=== PATIENT | female | born 1995 | race Asian ===

== ENCOUNTER 2017-03-03 08:05 | Emergency (ER) | payer OTHER ==
[2017-03-03] MEDS ORDERED: Albuterol/Ipratropium NEB.SOL* Albuterol 2.5 MG/Ipratropium 0.5 MG 3 ML INH ONE (09:42)
--- NOTE | 2017-03-03 10:17 | RAD ---
INDICATION: Cough for 2 weeks. Shortness of breath beginning this morning. Assess for pneumonia. COMPARISON: No relevant prior exams available on the [facility] for comparison. TECHNIQUE: Dual energy PA and routine lateral views of the chest were obtained. REPORT: Clear lungs and pleural spaces. Negative for pneumothorax. The heart, pulmonary vasculature, and mediastinal contours are unremarkable. Unremarkable osseous structures and soft tissue contours. IMPRESSION: No evidence for pneumonia. No evidence for acute intrathoracic disease.
--- NOTE | 2017-03-03 10:35 | ED ---
Respiratory - HPI Summary HPI Summary: 21 female presents to ED with complaints of SOB and cough that has been ongoing for the past 2 weeks. Patient states she was seen at [facility] Friday given, Desean, nai and mitali. States they have helped her some. She still has been coughing. Admits to a yellow mucus production, worse at night and in the morning. Denies fever/chills, nasal congestion, abdominal pain and chest pain. No prolonged travel or bed rest. Does not use cigarettes. No other complaints at this time. States she felt her muscles were not working this morning and refrained her from breathing but it has since improved and she is feeling better. No other complaints at this time. No PMHx. - History of Current Complaint Chief Complaint: EDShortnessOfBreath Stated Complaint: SHORT OF BREATH Time Seen by Provider: 03/03/17 08:48 Hx Obtained From: Patient Onset/Duration: Sudden Onset, Lasting Weeks, Still Present, Worse Since Current Severity: None Pain Intensity: 0 Character: Cough (Productive) Sputum Amount: Scant Sputum Color: Yellow Aggravating Factor(s): URI, Deep Breaths Alleviating Factor(s): OTC Medications, Spontaneous Resolution Associated Signs and Symptoms: SOB, URI - Allergy/Home Medications Allergies/Adverse Reactions: Allergies Allergy/AdvReac Type Severity Reaction Status Date / Time Penicillins Allergy Unknown Verified 03/03/17 08:15 Reaction Details PMH/Surg Hx/FS Hx/Imm Hx Endocrine/Hematology History: Denies: Hx Diabetes Cardiovascular History: Denies: Hx Hypertension Respiratory History: Denies: Hx Asthma - Surgical History Surgery Procedure, Year, and Place: n/a - Immunization History Immunizations Up to Date: Yes Infectious Disease History: No Infectious Disease History: Denies: Traveled Outside the [place] in Last 30 Days - Family History Known Family History: Positive: None - Social History Alcohol Use: None Substance Use Type: Reports: None Smoking Status (MU): Never Smoked Tobacco Review of Systems Constitutional: Negative Positive: Sore Throat - intermittently, Nasal Discharge - intermittently Cardiovascular: Negative Positive: Shortness Of Breath, Cough Positive: Vomiting - resolved Musculoskeletal: Negative All Other Systems Reviewed And Are Negative: Yes Physical Exam Triage Information Reviewed: Yes Vital Signs On Initial Exam: Initial Vitals Temp Pulse Resp BP Pulse Ox 97.8 F 72 15 106/72 99 03/03/17 08:07 03/03/17 08:07 03/03/17 08:07 03/03/17 08:07 03/03/17 08:07 Vital Signs Reviewed: Yes Appearance: Positive: Well-Appearing, No Pain Distress, Well-Nourished Skin: Positive: Warm, Skin Color Reflects Adequate Perfusion, Dry. Negative: Cold, Cyanosis @, Pale, Erythema @, Cold Injury Head/Face: Positive: Normal Head/Face Inspection Eyes: Positive: EOMI, IRIS, Conjunctiva Clear ENT: Positive: Normal ENT inspection, Hearing grossly normal, Pharynx normal, TMs normal, TM red. Negative: Nasal congestion, Nasal drainage, Trismus, Muffled/hoarse voice Neck: Positive: Supple, Nontender, No Lymphadenopathy Respiratory/Lung Sounds: Positive: Clear to Auscultation, Breath Sounds Present. Negative: Decreased Breath Sounds, Rales, Rhonchi, Wheezes Cardiovascular: Positive: Normal, RRR, Pulses are Symmetrical in both Upper and Lower Extremities. Negative: Murmur, Rub Abdomen Description: Positive: Nontender, Soft Bowel Sounds: Positive: Present Musculoskeletal: Positive: Normal, Strength/ROM Intact Neurological: Positive: Normal, Sensory/Motor Intact, Alert, Oriented to Person Place, Time, NV Bundle Intact Distally, Normal Gait - Katina Coma Scale Coma Scale Total: 15 Diagnostics - Vital Signs Vital Signs Temp Pulse Resp BP Pulse Ox 03/03/17 08:07 97.8 F 72 15 106/72 99 - Laboratory Lab Statement: Any lab studies that have been ordered have been reviewed, and results considered in the medical decision making process. - Radiology chest Xray Interpretation: No Acute Changes - No evidence for pneumonia. No evidence for acute intrathoracic disease. Radiology Interpretation Completed By: Radiologist Re-Evaluation - Re-Evaluation First Eval Re-Evaluation Time: 10:30 Change: Improved - feels better after duoneb, updated on chest xray, ready to be d/c Disposition - Course Course Of Treatment: repeat xray obtained and negative. given duoneb had relief. will give inhaler and steroid due to length of symptoms and not improving. follow up with pcp. aware of worsening signs and symptoms. normal vitals, afebril and non hypoxic. no concern for any other emergent etiology at this time. - Differential Dx - Cardiopulmonary Differential Diagnoses - Cardiopulmonary: Asthma, Bronchitis, Lower Resp Infection, Other - upper respiratory infection - Diagnoses Provider Diagnoses: Bronchospasm with bronchitis, acute Discharge - Discharge Plan Condition: Improved Disposition: HOME Prescriptions: Albuterol HFA INHALER* [Ventolin HFA Inhaler*] 1 puff INH Q4H PRN #1 mdi PRN Reason: Sob/Wheezing predniSONE TAB* [Deltasone TAB*] 20 mg PO DAILY #5 tab Patient Education Materials: Acute Bronchitis (ED), Bronchospasm (ED) Referrals: [facility] MENDEZ [Primary Care Provider] - Additional Instructions: Take prescribed medication as directed. Continue at home medications as previously instructed. Recommend just taking cough medication at nighttime. Any new or worsening symptoms please seek medical attention. Follow up with PCP in 2-3 days to recheck symptoms. Drink plenty of fluids and get plenty of rest.
[2017-03-03 10:42] VITALS: BP 121/62
== END 2017-03-03 10:41 | disposition home or self-care (01) ==
LOC: ED 08:05
DX: J40 Bronchitis, not specified as acute or chronic (principal); R06.02 Shortness of breath; R05 Cough; R11.10 Vomiting, unspecified; R11.0 Nausea
CPT/HCPCS: 71020; 94640; 99282; A9270-GY